=== PATIENT | male | born 1970 | race Caucasian/White ===

== ENCOUNTER → 2018-11-22 | Outpatient (CLI) | payer SELFPAY | LOC: C.LAB 15:35 | DX: E11.29 Type 2 diabetes mellitus with other diabetic kidney complication (principal); E78.2 Mixed hyperlipidemia; M1A.9XX0 Chronic gout, unspecified, without tophus (tophi); Z12.11 Encounter for screening for malignant neoplasm of colon; R10.13 Epigastric pain ==

== ENCOUNTER 2018-11-25 14:47 | Outpatient (CLI) | payer SELFPAY | END 2018-11-25 14:48 | disposition home or self-care (01) | LOC: C.LAB 14:47 | DX: E11.29 Type 2 diabetes mellitus with other diabetic kidney complication (principal); E78.2 Mixed hyperlipidemia; K76.0 Fatty (change of) liver, not elsewhere classified; M1A.9XX0 Chronic gout, unspecified, without tophus (tophi); Z12.11 Encounter for screening for malignant neoplasm of colon; R10.13 Epigastric pain ==

== ENCOUNTER 2018-12-02 09:05 | Outpatient (CLI) | payer SELFPAY | END 2018-12-02 09:06 | disposition home or self-care (01) | LOC: C.USIC 09:06 | DX: K76.0 Fatty (change of) liver, not elsewhere classified (principal); E11.29 Type 2 diabetes mellitus with other diabetic kidney complication ==

== ENCOUNTER 2018-12-13 18:50 | Outpatient (CLI) | payer SELFPAY | END 2018-12-13 18:51 | disposition home or self-care (01) | LOC: C.SLEEP 18:51 ==